=== PATIENT | male | born 1965 | race African-American/Black ===

== ENCOUNTER 2017-07-21 09:13 | Inpatient (IN) | payer OTHER ==
[2017-07-21 10:12] LABS: ADD MAN DIFF? NO
[2017-07-21 10:13] LABS: BASOPHILS % 0.2 % (0.0-2.0); EOSINOPHILS % 0.2 % (0.0-7.0); LYMPHOCYTES % 16.9 % (15.0-51.0); MEAN CORPUSCULAR HEMOGLOBIN 31.7 pg (29.0-33.0); MEAN CORPUSCULAR HGB CONC 33.3 g/dl (32.0-37.0); MEAN CORPUSCULAR VOLUME 95.1 fl (82.0-101.0); MEAN PLATELET VOLUME 11.6 fl (7.4-10.4); MONOCYTE # 0.4 10^3/ul (0.3-0.9); MONOCYTES % 6.4 % (0.0-11.0); NEUTROPHIL # 4.4 10^3/ul (1.6-7.5); NUCLEATED RED BLOOD CELLS% 0.5 /100WBC (0.0-0.0); PLATELET COUNT 164 10^3/UL (140-415); RED CELL DISTRIBUTION WIDTH 19.8 % (11.5-14.5)
[2017-07-21 10:13] LABS: WHITE BLOOD COUNT 5.8 10^3/ul (4.8-10.8)
[2017-07-21] MEDS: FUROSEMIDE 40 MG INJ IV (10:15)
[2017-07-21 10:36] LABS: ALANINE AMINOTRANSFERASE 34 IU/L (13-69); ALBUMIN 2.6 g/dl (3.3-4.9); ALBUMIN/GLOBULIN RATIO 0.59; ALKALINE PHOSPHATASE 208 IU/L (42-121); ANION GAP 10 (8-16); ASPARTATE AMINO TRANSFERASE 49 IU/L (15-46); BILIRUBIN,INDIRECT 0.6 mg/dl (0-1.1); BILIRUBIN,TOTAL 0.7 mg/dl (0.2-1.3); BLOOD UREA NITROGEN 18 mg/dl (7-20); CARBON DIOXIDE 29 mmol/L (21-31); CHLORIDE 98 mmol/L (97-110); CREATININE 0.86 mg/dl (0.61-1.24); GLUCOSE 366 mg/dl (70-220); POTASSIUM 3.7 mmol/L (3.5-5.1); SODIUM 133 mmol/L (135-144)
[2017-07-21 10:43] LABS: ETHANOL < 10.0 mg/dl
[2017-07-21 10:43] LABS: INR 1.32; PROTIME 16.6 Sec (11.9-14.9); PT RATIO 1.3
[2017-07-21 10:44] LABS: PARTIAL THROMBOPLASTIN TIME 30.7 Sec (25.0-35.0)
[2017-07-21 10:48] LABS: TROPONIN-I 0.044 ng/ml (0.00-0.12)
[2017-07-21 10:51] LABS: LACTIC ACID 3.1 mmol/L (0.5-2.0)
[2017-07-21] MEDS: metroNIDAZOLE 500 MG TAB PO (11:30)
[2017-07-21 11:40] LABS: BARBITURATES Negative (NEGATIVE); BENZODIAZEPINES Negative (NEGATIVE); CANNABINOIDS Positive (NEGATIVE); COCAINE Negative (NEGATIVE); OPIATES Negative (NEGATIVE)
[2017-07-21 11:54] LABS: AMPHETAMINE/METHAMPHETAMINE POSITIVE (NEGATIVE)
[2017-07-21] MEDS: morphine 2 MG INJ IV ×2 (12:02→15:14)
[2017-07-21] MEDS: INSULIN REGULAR, HUMAN 100 UNIT/1 ML 3ML VIAL SC (13:22)
[2017-07-21] MEDS: metroNIDAZOLE 500 MG/NS (PMX) 100 ML IVPB ×2 (13:29→22:10)
[2017-07-21] MEDS: LEVOFLOXACIN 750MG/D5W (PMX) 150 ML IVPB ×2 (14:46→18:31)
[2017-07-21] MEDS: VANCOMYCIN 1 GM (PMX) 250 ML IVPB (15:04)
[2017-07-21] MEDS ORDERED: ALBUMIN HUMAN 25% 50 ML IV (16:30)
[2017-07-21] MEDS ORDERED: VANCOMYCIN IV PER PHARMACY XX (16:30)
[2017-07-21] MEDS ORDERED: PROVENTIL HFA 6.7GM INHALER INH (17:00)
[2017-07-21] MEDS ORDERED: BARIUM SULF 2% 450 ML BTL (BERRY SMOOTHIE) PO (17:00)
[2017-07-21] MEDS ORDERED: DEXTROSE 50% 50 ML SYRINGE IV (17:30)
[2017-07-21] MEDS ORDERED: ALBUTEROL HFA 8 GM INHALER INH (17:30)
[2017-07-21] MEDS ORDERED: GLUCOSE GEL 15 GRAM TUBE PO (17:30)
[2017-07-21] MEDS ORDERED: FUROSEMIDE 40 MG INJ IV (18:00)
[2017-07-21] MEDS: INSULIN GLARGINE [LANtus] 3 ML PEN SC (18:17)
[2017-07-21] MEDS: INSULIN ASPART [NOVOLOG] 3 ML PEN SC ×3 (18:18→21:00)
[2017-07-21 20:29] LABS: LACTIC ACID 2.6 mmol/L (0.5-2.0)
[2017-07-21] MEDS: ALBUMIN HUMAN 25% 50 ML IV (20:40)
[2017-07-21] MEDS: DOCUSATE SODIUM 100 MG CAP PO (21:00)
[2017-07-21] MEDS: GABAPENTIN 300 MG CAP PO (21:19)
[2017-07-21] MEDS: RALTEGRAVIR 400 MG TAB PO (21:19)
[2017-07-21] MEDS: FAMOTIDINE 20 MG TAB PO (21:20)
[2017-07-21] MEDS: QUETIAPINE 100 MG TAB PO (21:20)
[2017-07-21] MEDS: morphine LIQ (10 MG/5 ML) CUP PO (21:21)
[2017-07-21] MEDS: VANCOMYCIN 2 GM in DEXTROSE 5% 500 ML IVPB (22:09)
[2017-07-22] MEDS: SOD CHLORIDE 0.9% 100 ML (00:15)
[2017-07-22] MEDS: IOHEXOL 300MG/ML 150 ML BTL (00:15)
[2017-07-22] MEDS: ACCU-CHEK XX (01:23)
[2017-07-22] MEDS: ALBUMIN HUMAN 25% 50 ML IV (04:21)
[2017-07-22] MEDS: metroNIDAZOLE 500 MG/NS (PMX) 100 ML IVPB (05:38)
[2017-07-22] MEDS ORDERED: VANCOMYCIN 1.75 GM in D5W 500 ML IVPB ×2 (06:00→10:00)
[2017-07-22 06:25] LABS: ADD MAN DIFF? NO
[2017-07-22 06:30] LABS: BASOPHILS % 0.3 % (0.0-2.0); EOSINOPHILS % 0.5 % (0.0-7.0); HEMATOCRIT 35.1 % (42.0-52.0); HEMOGLOBIN 11.7 g/dl (14.0-18.0); LYMPHOCYTES # 1.3 10^3/ul (0.8-2.9); LYMPHOCYTES % 33.8 % (15.0-51.0); MEAN CORPUSCULAR HEMOGLOBIN 31.5 pg (29.0-33.0); MEAN CORPUSCULAR HGB CONC 33.3 g/dl (32.0-37.0); MEAN CORPUSCULAR VOLUME 94.6 fl (82.0-101.0); MEAN PLATELET VOLUME 11.8 fl (7.4-10.4); MONOCYTE # 0.4 10^3/ul (0.3-0.9); MONOCYTES % 9.8 % (0.0-11.0); NEUTROPHIL # 2.2 10^3/ul (1.6-7.5); NEUTROPHILS % 55.3 % (39.0-77.0); NUCLEATED RED BLOOD CELLS% 0.5 /100WBC (0.0-0.0); PLATELET COUNT 141 10^3/UL (140-415); RED BLOOD COUNT 3.71 10^6/ul (4.70-6.10); RED CELL DISTRIBUTION WIDTH 20.3 % (11.5-14.5)
[2017-07-22 06:56] LABS: ALBUMIN 2.4 g/dl (3.3-4.9); ANION GAP 10 (8-16); BLOOD UREA NITROGEN 17 mg/dl (7-20); CARBON DIOXIDE 31 mmol/L (21-31); CHLORIDE 101 mmol/L (97-110); CREATININE 0.82 mg/dl (0.61-1.24); GLUCOSE 64 mg/dl (70-220); MAGNESIUM 1.4 mg/dl (1.7-2.5); PHOSPHORUS 3.2 mg/dl (2.5-4.9); POTASSIUM 3.1 mmol/L (3.5-5.1); SODIUM 139 mmol/L (135-144)
[2017-07-22 07:00] LABS: LACTIC ACID 1.8 mmol/L (0.5-2.0)
[2017-07-22 07:11] LABS: INR 1.25; PROTIME 15.9 Sec (11.9-14.9); PT RATIO 1.2
[2017-07-22] MEDS: FUROSEMIDE 20 MG INJ IV ×2 (07:45→17:38)
[2017-07-22] MEDS: DEXTROSE 50% 50 ML SYRINGE IV ×4 (08:08→12:44)
[2017-07-22] MEDS: INSULIN ASPART [NOVOLOG] 3 ML PEN SC ×5 (08:10→21:00)
[2017-07-22] MEDS: LISINOPRIL 5 MG TAB PO (09:00)
[2017-07-22] MEDS: FAMOTIDINE 20 MG TAB PO ×2 (09:00→21:02)
[2017-07-22] MEDS: DOCUSATE SODIUM 100 MG CAP PO ×2 (09:00→21:02)
[2017-07-22] MEDS: RALTEGRAVIR 400 MG TAB PO ×2 (09:00→21:02)
[2017-07-22] MEDS: GABAPENTIN 300 MG CAP PO ×3 (09:00→21:02)
[2017-07-22] MEDS: POTASSIUM CHLORIDE (SR) 10 MEQ TAB PO (09:00)
[2017-07-22] MEDS: GLUCOSE GEL 15 GRAM TUBE PO (09:05)
[2017-07-22] MEDS: GLUCOSE GEL 15 GRAM TUBE BUCCAL ×2 (10:51→17:37)
[2017-07-22 10:52] LABS: GLUCOSE 94 mg/dl (70-220)
[2017-07-22] MEDS ORDERED: VANCOMYCIN 1.5 GM in DEXTROSE 5% 500 ML IVPB (11:00)
[2017-07-22] MEDS: MAGNESIUM SULFATE 2 GM/50 ML 50 ML IVPB (11:15)
[2017-07-22] MEDS ORDERED: INSULIN ASPART [NOVOLOG] 3 ML PEN SC (12:15)
[2017-07-22] MEDS: DEXTROSE 5% 1,000 ML IV (13:55)
[2017-07-22] MEDS: GLUCAGON 1 MG INJ IM (14:51)
[2017-07-22] MEDS: NALOXONE (0.4 MG/ML) INJ IV (14:55)
[2017-07-22] MEDS: ALBUMIN HUMAN 25% 100 ML IV ×2 (17:00→17:39)
[2017-07-23] MEDS: HALOPERIDOL 5 MG INJ IM (00:30)
[2017-07-23] MEDS: LORAZEPAM 2 MG INJ IV (00:31)
[2017-07-23] MEDS: ACCU-CHEK XX (02:00)
[2017-07-23] MEDS: ALBUMIN HUMAN 25% 100 ML IV (04:46)
[2017-07-23] MEDS: FUROSEMIDE 20 MG INJ IV (05:44)
[2017-07-23 06:15] LABS: ADD MAN DIFF? NO
[2017-07-23 06:17] LABS: BASOPHILS % 0.4 % (0.0-2.0); EOSINOPHILS % 0.2 % (0.0-7.0); HEMATOCRIT 36.5 % (42.0-52.0); HEMOGLOBIN 12.2 g/dl (14.0-18.0); LYMPHOCYTES # 1.6 10^3/ul (0.8-2.9); LYMPHOCYTES % 31.8 % (15.0-51.0); MEAN CORPUSCULAR HEMOGLOBIN 31.9 pg (29.0-33.0); MEAN CORPUSCULAR HGB CONC 33.4 g/dl (32.0-37.0); MEAN CORPUSCULAR VOLUME 95.3 fl (82.0-101.0); MEAN PLATELET VOLUME 10.7 fl (7.4-10.4); MONOCYTE # 0.5 10^3/ul (0.3-0.9); MONOCYTES % 9.2 % (0.0-11.0); NEUTROPHIL # 2.8 10^3/ul (1.6-7.5); NUCLEATED RED BLOOD CELLS% 0.8 /100WBC (0.0-0.0); PLATELET COUNT 152 10^3/UL (140-415); RED BLOOD COUNT 3.83 10^6/ul (4.70-6.10); RED CELL DISTRIBUTION WIDTH 21.4 % (11.5-14.5)
[2017-07-23 06:17] LABS: WHITE BLOOD COUNT 4.9 10^3/ul (4.8-10.8)
[2017-07-23 06:46] LABS: ALANINE AMINOTRANSFERASE 37 IU/L (13-69); ALBUMIN/GLOBULIN RATIO 0.76; ALKALINE PHOSPHATASE 165 IU/L (42-121); ANION GAP 11 (8-16); ASPARTATE AMINO TRANSFERASE 38 IU/L (15-46); BILIRUBIN,INDIRECT 0.5 mg/dl (0-1.1); BILIRUBIN,TOTAL 0.5 mg/dl (0.2-1.3); BLOOD UREA NITROGEN 16 mg/dl (7-20); CALCIUM 8.4 mg/dl (8.4-10.2); CARBON DIOXIDE 31 mmol/L (21-31); CHLORIDE 100 mmol/L (97-110); CREATININE 0.84 mg/dl (0.61-1.24); GLUCOSE 212 mg/dl (70-220); POTASSIUM 3.4 mmol/L (3.5-5.1); SODIUM 139 mmol/L (135-144); TOTAL PROTEIN 6.9 g/dl (6.1-8.1)
[2017-07-23 06:59] LABS: ALBUMIN 3.1 g/dl (3.3-4.9); ANION GAP 11 (8-16); BLOOD UREA NITROGEN 17 mg/dl (7-20); CALCIUM 8.2 mg/dl (8.4-10.2); CARBON DIOXIDE 32 mmol/L (21-31); CHLORIDE 100 mmol/L (97-110); CREATININE 0.85 mg/dl (0.61-1.24); GLUCOSE 215 mg/dl (70-220); PHOSPHORUS 3.3 mg/dl (2.5-4.9); POTASSIUM 3.2 mmol/L (3.5-5.1); SODIUM 140 mmol/L (135-144)
[2017-07-23 07:19] LABS: COLLECTION PERIOD 24 hrs
[2017-07-23 07:34] LABS: COLLECTION PERIOD 24 hrs; SCRET 0.84 mg/dl (0.61-1.24); VOLUME 4550 ml/24hrs
[2017-07-23 07:35] LABS: CREATININE CLEARANCE 50.7 mls/min (84.0-162.0); CREATININE,URINE RANDOM 13.48 mg/dl (20-370); VOLUME 4550 mls
[2017-07-23] MEDS: INSULIN ASPART [NOVOLOG] 3 ML PEN SC ×7 (08:15→21:00)
[2017-07-23] MEDS ORDERED: INSULIN GLARGINE [LANtus] 3 ML PEN SC (09:00)
[2017-07-23] MEDS: FAMOTIDINE 20 MG TAB PO ×2 (09:24→20:46)
[2017-07-23] MEDS: POTASSIUM CHLORIDE (SR) 10 MEQ TAB PO (09:24)
[2017-07-23] MEDS: RALTEGRAVIR 400 MG TAB PO ×2 (09:24→20:46)
[2017-07-23] MEDS: DOCUSATE SODIUM 100 MG CAP PO ×2 (09:24→20:46)
[2017-07-23] MEDS: GABAPENTIN 300 MG CAP PO ×2 (09:25→12:52)
[2017-07-23] MEDS: LISINOPRIL 5 MG TAB PO ×2 (09:31→10:46)
[2017-07-23] MEDS: POTASSIUM CHLORIDE (SR) 20 MEQ TAB PO (10:44)
[2017-07-23] MEDS: QUETIAPINE 25 MG TAB PO (11:30)
[2017-07-23] MEDS: COLLAGENASE 30 GM TUBE TOP (12:52)
[2017-07-23] MEDS ORDERED: VANCOMYCIN IV PER PHARMACY XX (15:00)
[2017-07-23] MEDS: VANCOMYCIN 2 GM in DEXTROSE 5% 500 ML IVPB (17:03)
[2017-07-23] MEDS: FUROSEMIDE 40 MG INJ IV (17:22)
[2017-07-23] MEDS: INSULIN GLARGINE [LANtus] 3 ML PEN SC (20:53)
[2017-07-23] MEDS: QUETIAPINE 100 MG TAB PO (21:00)
[2017-07-24] MEDS: QUETIAPINE 100 MG TAB PO ×3 (01:09→19:49)
[2017-07-24] MEDS: ACCU-CHEK XX ×2 (02:00)
[2017-07-24] MEDS: VANCOMYCIN 1.5 GM in SOD CHLORIDE 0.9% 250 ML IVPB ×2 (05:12→17:03)
[2017-07-24] MEDS: FUROSEMIDE 40 MG INJ IV ×2 (05:13→17:05)
[2017-07-24] MEDS: INSULIN ASPART [NOVOLOG] 3 ML PEN SC ×7 (08:15→19:56)
[2017-07-24] MEDS: DOCUSATE SODIUM 100 MG CAP PO ×2 (08:52→19:49)
[2017-07-24] MEDS: QUETIAPINE 25 MG TAB PO (08:53)
[2017-07-24] MEDS: RALTEGRAVIR 400 MG TAB PO ×2 (08:53→19:49)
[2017-07-24] MEDS: POTASSIUM CHLORIDE (SR) 10 MEQ TAB PO (08:53)
[2017-07-24] MEDS: FAMOTIDINE 20 MG TAB PO ×2 (08:53→19:49)
[2017-07-24] MEDS: LISINOPRIL 5 MG TAB PO ×2 (08:54→08:55)
[2017-07-24] MEDS: COLLAGENASE 30 GM TUBE TOP (12:00)
[2017-07-24 13:32] LABS: ADD MAN DIFF? NO
[2017-07-24 13:35] LABS: BASOPHILS % 0.3 % (0.0-2.0); EOSINOPHILS % 0.3 % (0.0-7.0); HEMATOCRIT 39.7 % (42.0-52.0); HEMOGLOBIN 12.9 g/dl (14.0-18.0); LYMPHOCYTES # 1.5 10^3/ul (0.8-2.9); LYMPHOCYTES % 24.4 % (15.0-51.0); MEAN CORPUSCULAR HEMOGLOBIN 31.9 pg (29.0-33.0); MEAN CORPUSCULAR HGB CONC 32.5 g/dl (32.0-37.0); MEAN PLATELET VOLUME 10.1 fl (7.4-10.4); MONOCYTE # 0.4 10^3/ul (0.3-0.9); MONOCYTES % 7.3 % (0.0-11.0); NEUTROPHIL # 4.1 10^3/ul (1.6-7.5); NEUTROPHILS % 67.4 % (39.0-77.0); NUCLEATED RED BLOOD CELLS% 0.3 /100WBC (0.0-0.0); PLATELET COUNT 156 10^3/UL (140-415); RED BLOOD COUNT 4.05 10^6/ul (4.70-6.10); RED CELL DISTRIBUTION WIDTH 21.8 % (11.5-14.5)
[2017-07-24 13:55] LABS: ANION GAP 7 (8-16); BLOOD UREA NITROGEN 14 mg/dl (7-20); CALCIUM 8.2 mg/dl (8.4-10.2); CARBON DIOXIDE 39 mmol/L (21-31); CHLORIDE 98 mmol/L (97-110); CREATININE 0.84 mg/dl (0.61-1.24); GLUCOSE 143 mg/dl (70-220); MAGNESIUM 1.3 mg/dl (1.7-2.5); POTASSIUM 3.4 mmol/L (3.5-5.1); SODIUM 141 mmol/L (135-144)
[2017-07-24] MEDS: morphine LIQ (10 MG/5 ML) CUP PO (15:09)
[2017-07-24 16:05] LABS: ALBUMIN 2.6 g/dl (3.3-4.9); PHOSPHORUS 3.6 mg/dl (2.5-4.9)
[2017-07-24] MEDS: ONDANSETRON 4 MG INJ IV (18:38)
[2017-07-24] MEDS: INSULIN GLARGINE [LANtus] 3 ML PEN SC (19:55)
[2017-07-24] MEDS: HALOPERIDOL 5 MG INJ IM (22:06)
[2017-07-25] MEDS: ACCU-CHEK XX ×2 (02:00)
[2017-07-25] MEDS: FUROSEMIDE 40 MG INJ IV ×2 (05:13→16:30)
[2017-07-25] MEDS: VANCOMYCIN 1.5 GM in SOD CHLORIDE 0.9% 250 ML IVPB ×2 (05:14→16:38)
[2017-07-25] MEDS: INSULIN ASPART [NOVOLOG] 3 ML PEN SC ×7 (08:04→20:50)
[2017-07-25] MEDS: ENOXAPARIN 40 MG/0.4 ML SYG SC (09:00)
[2017-07-25] MEDS: DOCUSATE SODIUM 100 MG CAP PO ×2 (09:00→20:46)
[2017-07-25] MEDS: LISINOPRIL 5 MG TAB PO ×2 (09:00→09:33)
[2017-07-25] MEDS: RALTEGRAVIR 400 MG TAB PO ×2 (09:32→20:54)
[2017-07-25] MEDS: POTASSIUM CHLORIDE (SR) 10 MEQ TAB PO (09:33)
[2017-07-25] MEDS: FAMOTIDINE 20 MG TAB PO ×2 (09:33→20:46)
[2017-07-25] MEDS: QUETIAPINE 25 MG TAB PO (09:34)
[2017-07-25] MEDS: COLLAGENASE 30 GM TUBE TOP (09:34)
[2017-07-25 11:52] LABS: ANION GAP 7 (8-16); BLOOD UREA NITROGEN 13 mg/dl (7-20); CALCIUM 8.2 mg/dl (8.4-10.2); CARBON DIOXIDE 38 mmol/L (21-31); CHLORIDE 97 mmol/L (97-110); CREATININE 0.74 mg/dl (0.61-1.24); GLUCOSE 123 mg/dl (70-220); MAGNESIUM 1.3 mg/dl (1.7-2.5); POTASSIUM 3.8 mmol/L (3.5-5.1); SODIUM 138 mmol/L (135-144)
[2017-07-25] MEDS: morphine LIQ (10 MG/5 ML) CUP PO ×3 (14:19→23:18)
[2017-07-25 17:24] LABS: VANCOMYCIN,TROUGH 22.8 ug/ml (10.0-20.0)
[2017-07-25] MEDS: EMTRICITABINE/TENOFOV ALAFENAM 1 EACH TABLET PO (18:11)
[2017-07-25] MEDS: CASPOFUNGIN 70 MG in SOD CHLORIDE 0.9% 250 ML IVPB (18:46)
[2017-07-25] MEDS: MAGNESIUM SULFATE 4 GM/100 ML 100 ML IVPB (19:55)
[2017-07-25] MEDS: INSULIN GLARGINE [LANtus] 3 ML PEN SC (20:49)
[2017-07-25] MEDS: MAGNESIUM OXIDE 400 MG TAB PO (20:54)
[2017-07-25] MEDS: QUETIAPINE 100 MG TAB PO (20:54)
[2017-07-26] MEDS: ACCU-CHEK XX ×2 (01:40→01:45)
[2017-07-26] MEDS: QUETIAPINE 100 MG TAB PO ×2 (03:23→21:40)
[2017-07-26] MEDS: morphine LIQ (10 MG/5 ML) CUP PO ×2 (03:25→18:18)
[2017-07-26] MEDS: FUROSEMIDE 40 MG INJ IV (05:00)
[2017-07-26] MEDS: INSULIN ASPART [NOVOLOG] 3 ML PEN SC ×7 (08:19→22:49)
[2017-07-26] MEDS: EMTRICITABINE/TENOFOV ALAFENAM 1 EACH TABLET PO ×2 (09:00→10:53)
[2017-07-26] MEDS: LISINOPRIL 5 MG TAB PO ×2 (09:00)
[2017-07-26] MEDS: QUETIAPINE 25 MG TAB PO (09:32)
[2017-07-26] MEDS: MAGNESIUM OXIDE 400 MG TAB PO ×2 (09:32→21:40)
[2017-07-26] MEDS: RALTEGRAVIR 400 MG TAB PO ×2 (09:32→21:40)
[2017-07-26] MEDS: POTASSIUM CHLORIDE (SR) 10 MEQ TAB PO (09:32)
[2017-07-26] MEDS: DOCUSATE SODIUM 100 MG CAP PO ×2 (09:32→21:00)
[2017-07-26] MEDS: FAMOTIDINE 20 MG TAB PO ×2 (09:33→21:41)
[2017-07-26] MEDS: COLLAGENASE 30 GM TUBE TOP (09:43)
[2017-07-26] MEDS: ENOXAPARIN 40 MG/0.4 ML SYG SC (09:51)
[2017-07-26] MEDS: VANCOMYCIN 1 GM 250 ML IVPB ×2 (11:42→22:54)
[2017-07-26 15:35] LABS: ANION GAP 7 (8-16); BLOOD UREA NITROGEN 15 mg/dl (7-20); CALCIUM 8.2 mg/dl (8.4-10.2); CARBON DIOXIDE 37 mmol/L (21-31); CHLORIDE 96 mmol/L (97-110); GLUCOSE 151 mg/dl (70-220); MAGNESIUM 1.9 mg/dl (1.7-2.5); POTASSIUM 4.5 mmol/L (3.5-5.1); SODIUM 135 mmol/L (135-144)
[2017-07-26] MEDS: FUROSEMIDE 40 MG TAB PO (18:09)
[2017-07-26] MEDS ORDERED: CASPOFUNGIN 50 MG in SOD CHLORIDE 0.9% 250 ML IVPB (18:30)
[2017-07-26] MEDS: ONDANSETRON 4 MG INJ IV (19:52)
[2017-07-26] MEDS: INSULIN GLARGINE [LANtus] 3 ML PEN SC (22:48)
[2017-07-27] MEDS: ACCU-CHEK XX ×2 (02:00)
[2017-07-27] MEDS: FUROSEMIDE 40 MG TAB PO ×2 (05:55→17:33)
[2017-07-27] MEDS: INSULIN ASPART [NOVOLOG] 3 ML PEN SC ×7 (08:12→20:25)
[2017-07-27] MEDS: morphine LIQ (10 MG/5 ML) CUP PO ×2 (08:19→20:29)
[2017-07-27] MEDS: POTASSIUM CHLORIDE (SR) 10 MEQ TAB PO (08:21)
[2017-07-27] MEDS: RALTEGRAVIR 400 MG TAB PO ×2 (08:21→20:24)
[2017-07-27] MEDS: QUETIAPINE 25 MG TAB PO (08:21)
[2017-07-27] MEDS: MAGNESIUM OXIDE 400 MG TAB PO ×2 (08:21→20:23)
[2017-07-27] MEDS: FAMOTIDINE 20 MG TAB PO ×2 (08:21→20:23)
[2017-07-27] MEDS: LISINOPRIL 5 MG TAB PO (08:22)
[2017-07-27] MEDS: DOCUSATE SODIUM 100 MG CAP PO ×2 (08:23→20:23)
[2017-07-27] MEDS: ENOXAPARIN 40 MG/0.4 ML SYG SC (08:25)
[2017-07-27] MEDS: COLLAGENASE 30 GM TUBE TOP (09:00)
[2017-07-27] MEDS: EMTRICITABINE/TENOFOV ALAFENAM 1 EACH TABLET PO (12:16)
[2017-07-27] MEDS: VANCOMYCIN 1 GM 250 ML IVPB ×2 (12:27→23:46)
[2017-07-27 13:58] LABS: ADD MAN DIFF? NO
[2017-07-27 14:00] LABS: BASOPHILS % 0.2 % (0.0-2.0); EOSINOPHILS % 0.2 % (0.0-7.0); LYMPHOCYTES # 1.7 10^3/ul (0.8-2.9); LYMPHOCYTES % 32.6 % (15.0-51.0); MEAN CORPUSCULAR HEMOGLOBIN 31.6 pg (29.0-33.0); MEAN CORPUSCULAR HGB CONC 32.5 g/dl (32.0-37.0); MEAN CORPUSCULAR VOLUME 97.1 fl (82.0-101.0); MEAN PLATELET VOLUME 10.6 fl (7.4-10.4); MONOCYTE # 0.5 10^3/ul (0.3-0.9); MONOCYTES % 9.6 % (0.0-11.0); PLATELET COUNT 145 10^3/UL (140-415); RED BLOOD COUNT 4.12 10^6/ul (4.70-6.10); RED CELL DISTRIBUTION WIDTH 21.2 % (11.5-14.5)
[2017-07-27 14:00] LABS: WHITE BLOOD COUNT 5.3 10^3/ul (4.8-10.8)
[2017-07-27 14:37] LABS: ANION GAP 9 (8-16); BLOOD UREA NITROGEN 15 mg/dl (7-20); CALCIUM 8.3 mg/dl (8.4-10.2); CARBON DIOXIDE 37 mmol/L (21-31); CHLORIDE 95 mmol/L (97-110); CREATININE 0.78 mg/dl (0.61-1.24); GLUCOSE 191 mg/dl (70-220); POTASSIUM 5.1 mmol/L (3.5-5.1); SODIUM 136 mmol/L (135-144)
[2017-07-27] MEDS: INSULIN GLARGINE [LANtus] 3 ML PEN SC (20:21)
[2017-07-27] MEDS: QUETIAPINE 100 MG TAB PO (20:24)
[2017-07-27 23:22] LABS: VANCOMYCIN,TROUGH 16.2 ug/ml (10.0-20.0)
[2017-07-28] MEDS: ACCU-CHEK XX ×2 (02:00)
[2017-07-28] MEDS: FUROSEMIDE 40 MG TAB PO ×2 (05:32→17:23)
[2017-07-28] MEDS: morphine LIQ (10 MG/5 ML) CUP PO ×3 (05:33→23:17)
[2017-07-28 06:09] LABS: ADD MAN DIFF? NO
[2017-07-28 06:18] LABS: BASOPHILS % 0.4 % (0.0-2.0); EOSINOPHILS % 0.2 % (0.0-7.0); HEMATOCRIT 40.6 % (42.0-52.0); HEMOGLOBIN 13.3 g/dl (14.0-18.0); LYMPHOCYTES # 2.1 10^3/ul (0.8-2.9); LYMPHOCYTES % 38.9 % (15.0-51.0); MEAN CORPUSCULAR HEMOGLOBIN 31.6 pg (29.0-33.0); MEAN CORPUSCULAR HGB CONC 32.8 g/dl (32.0-37.0); MEAN CORPUSCULAR VOLUME 96.4 fl (82.0-101.0); MEAN PLATELET VOLUME 11.3 fl (7.4-10.4); MONOCYTE # 0.5 10^3/ul (0.3-0.9); MONOCYTES % 9.4 % (0.0-11.0); NEUTROPHIL # 2.7 10^3/ul (1.6-7.5); NEUTROPHILS % 50.7 % (39.0-77.0); PLATELET COUNT 143 10^3/UL (140-415); RED BLOOD COUNT 4.21 10^6/ul (4.70-6.10); RED CELL DISTRIBUTION WIDTH 21.2 % (11.5-14.5)
[2017-07-28 06:18] LABS: WHITE BLOOD COUNT 5.3 10^3/ul (4.8-10.8)
[2017-07-28 06:59] LABS: BLOOD UREA NITROGEN 16 mg/dl (7-20); CALCIUM 8.8 mg/dl (8.4-10.2); CHLORIDE 97 mmol/L (97-110); CREATININE 0.82 mg/dl (0.61-1.24); GLUCOSE 149 mg/dl (70-220); SODIUM 139 mmol/L (135-144)
[2017-07-28 07:18] LABS: ANION GAP 10 (8-16); CARBON DIOXIDE 37 mmol/L (21-31)
[2017-07-28] MEDS: INSULIN ASPART [NOVOLOG] 3 ML PEN SC ×7 (08:28→20:32)
[2017-07-28] MEDS: ENOXAPARIN 40 MG/0.4 ML SYG SC (08:29)
[2017-07-28] MEDS: RALTEGRAVIR 400 MG TAB PO ×2 (08:29→20:25)
[2017-07-28] MEDS: DOCUSATE SODIUM 100 MG CAP PO ×2 (08:30→20:26)
[2017-07-28] MEDS: POTASSIUM CHLORIDE (SR) 10 MEQ TAB PO (08:30)
[2017-07-28] MEDS: QUETIAPINE 25 MG TAB PO (08:30)
[2017-07-28] MEDS: MAGNESIUM OXIDE 400 MG TAB PO ×2 (08:30→20:26)
[2017-07-28] MEDS: LISINOPRIL 5 MG TAB PO (08:31)
[2017-07-28] MEDS: FAMOTIDINE 20 MG TAB PO ×2 (08:31→20:26)
[2017-07-28] MEDS: COLLAGENASE 30 GM TUBE TOP (08:31)
[2017-07-28] MEDS: VANCOMYCIN 1 GM 250 ML IVPB (12:08)
[2017-07-28] MEDS: EMTRICITABINE/TENOFOV ALAFENAM 1 EACH TABLET PO (12:08)
[2017-07-28] MEDS: QUETIAPINE 100 MG TAB PO (20:26)
[2017-07-28] MEDS: INSULIN GLARGINE [LANtus] 3 ML PEN SC (20:30)
[2017-07-28] MEDS: VANCOMYCIN 750 MG in DEXTROSE 5% 150 ML IVPB (23:13)
[2017-07-29] MEDS: ACCU-CHEK XX ×2 (02:00→02:06)
[2017-07-29 06:09] LABS: ADD MAN DIFF? NO
[2017-07-29 06:43] LABS: ANION GAP 7 (8-16); BLOOD UREA NITROGEN 18 mg/dl (7-20); CALCIUM 8.8 mg/dl (8.4-10.2); CARBON DIOXIDE 37 mmol/L (21-31); CHLORIDE 97 mmol/L (97-110); CREATININE 0.83 mg/dl (0.61-1.24); GLUCOSE 200 mg/dl (70-220); SODIUM 136 mmol/L (135-144)
[2017-07-29 06:44] LABS: BASOPHILS % 0.4 % (0.0-2.0); EOSINOPHILS % 0.2 % (0.0-7.0); HEMATOCRIT 38.2 % (42.0-52.0); HEMOGLOBIN 12.7 g/dl (14.0-18.0); MEAN CORPUSCULAR HEMOGLOBIN 31.8 pg (29.0-33.0); MEAN CORPUSCULAR HGB CONC 33.2 g/dl (32.0-37.0); MEAN CORPUSCULAR VOLUME 95.5 fl (82.0-101.0); MEAN PLATELET VOLUME 11.1 fl (7.4-10.4); MONOCYTE # 0.5 10^3/ul (0.3-0.9); MONOCYTES % 8.7 % (0.0-11.0); NEUTROPHIL # 2.8 10^3/ul (1.6-7.5); NEUTROPHILS % 53.5 % (39.0-77.0); PLATELET COUNT 157 10^3/UL (140-415); RED CELL DISTRIBUTION WIDTH 20.9 % (11.5-14.5)
[2017-07-29 06:44] LABS: WHITE BLOOD COUNT 5.3 10^3/ul (4.8-10.8)
[2017-07-29] MEDS: FUROSEMIDE 40 MG TAB PO ×2 (06:45→17:39)
[2017-07-29] MEDS: morphine LIQ (10 MG/5 ML) CUP PO ×3 (08:07→20:46)
[2017-07-29] MEDS: INSULIN ASPART [NOVOLOG] 3 ML PEN SC ×7 (08:15→20:55)
[2017-07-29] MEDS: RALTEGRAVIR 400 MG TAB PO ×2 (08:35→20:47)
[2017-07-29] MEDS: QUETIAPINE 25 MG TAB PO (08:35)
[2017-07-29] MEDS: MAGNESIUM OXIDE 400 MG TAB PO ×2 (08:36→20:48)
[2017-07-29] MEDS: FAMOTIDINE 20 MG TAB PO ×2 (08:36→20:48)
[2017-07-29] MEDS: DOCUSATE SODIUM 100 MG CAP PO ×2 (08:36→20:47)
[2017-07-29] MEDS: POTASSIUM CHLORIDE (SR) 10 MEQ TAB PO (08:36)
[2017-07-29] MEDS: LISINOPRIL 5 MG TAB PO (08:37)
[2017-07-29] MEDS: ENOXAPARIN 40 MG/0.4 ML SYG SC (08:37)
[2017-07-29] MEDS: COLLAGENASE 30 GM TUBE TOP (08:49)
[2017-07-29] MEDS: EMTRICITABINE/TENOFOV ALAFENAM 1 EACH TABLET PO (10:46)
[2017-07-29] MEDS: VANCOMYCIN 750 MG in DEXTROSE 5% 150 ML IVPB ×2 (10:46→23:28)
[2017-07-29] MEDS: QUETIAPINE 100 MG TAB PO (20:48)
[2017-07-29] MEDS: INSULIN GLARGINE [LANtus] 3 ML PEN SC (20:53)
[2017-07-30] MEDS: ACCU-CHEK XX (01:52)
[2017-07-30] MEDS: LORAZEPAM 2 MG INJ IV (02:35)
[2017-07-30 05:48] LABS: ADD MAN DIFF? NO
[2017-07-30 05:59] LABS: BASOPHILS % 0.3 % (0.0-2.0); EOSINOPHILS % 0.2 % (0.0-7.0); HEMATOCRIT 39.4 % (42.0-52.0); HEMOGLOBIN 13.1 g/dl (14.0-18.0); LYMPHOCYTES # 1.8 10^3/ul (0.8-2.9); LYMPHOCYTES % 29.5 % (15.0-51.0); MEAN CORPUSCULAR HEMOGLOBIN 31.9 pg (29.0-33.0); MEAN CORPUSCULAR HGB CONC 33.2 g/dl (32.0-37.0); MEAN CORPUSCULAR VOLUME 95.9 fl (82.0-101.0); MEAN PLATELET VOLUME 10.5 fl (7.4-10.4); MONOCYTE # 0.5 10^3/ul (0.3-0.9); MONOCYTES % 8.3 % (0.0-11.0); NEUTROPHIL # 3.8 10^3/ul (1.6-7.5); NEUTROPHILS % 61.5 % (39.0-77.0); PLATELET COUNT 160 10^3/UL (140-415); RED BLOOD COUNT 4.11 10^6/ul (4.70-6.10); RED CELL DISTRIBUTION WIDTH 20.5 % (11.5-14.5)
[2017-07-30 05:59] LABS: WHITE BLOOD COUNT 6.1 10^3/ul (4.8-10.8)
[2017-07-30 06:20] LABS: ANION GAP 10 (8-16); BLOOD UREA NITROGEN 18 mg/dl (7-20); CALCIUM 9.1 mg/dl (8.4-10.2); CARBON DIOXIDE 37 mmol/L (21-31); CHLORIDE 96 mmol/L (97-110); CREATININE 0.91 mg/dl (0.61-1.24); GLUCOSE 220 mg/dl (70-220); POTASSIUM 4.8 mmol/L (3.5-5.1); SODIUM 138 mmol/L (135-144)
[2017-07-30] MEDS: FUROSEMIDE 40 MG TAB PO ×2 (07:39→17:45)
[2017-07-30] MEDS: INSULIN ASPART [NOVOLOG] 3 ML PEN SC ×7 (07:58→20:13)
[2017-07-30] MEDS: DOCUSATE SODIUM 100 MG CAP PO ×2 (08:54→20:06)
[2017-07-30] MEDS: POTASSIUM CHLORIDE (SR) 10 MEQ TAB PO (08:55)
[2017-07-30] MEDS: FAMOTIDINE 20 MG TAB PO ×2 (08:56→20:06)
[2017-07-30] MEDS: RALTEGRAVIR 400 MG TAB PO ×2 (08:56→20:05)
[2017-07-30] MEDS: QUETIAPINE 25 MG TAB PO (08:56)
[2017-07-30] MEDS: LISINOPRIL 5 MG TAB PO (08:57)
[2017-07-30] MEDS: MAGNESIUM OXIDE 400 MG TAB PO ×2 (08:57→20:06)
[2017-07-30] MEDS: EMTRICITABINE/TENOFOV ALAFENAM 1 EACH TABLET PO ×2 (09:00→10:34)
[2017-07-30] MEDS: COLLAGENASE 30 GM TUBE TOP (09:00)
[2017-07-30] MEDS: ENOXAPARIN 40 MG/0.4 ML SYG SC (09:00)
[2017-07-30 10:38] LABS: VANCOMYCIN,TROUGH 14.2 ug/ml (10.0-20.0)
[2017-07-30] MEDS: VANCOMYCIN 750 MG in DEXTROSE 5% 150 ML IVPB (11:26)
[2017-07-30] MEDS: morphine LIQ (10 MG/5 ML) CUP PO (12:22)
[2017-07-30] MEDS: QUETIAPINE 100 MG TAB PO (20:05)
[2017-07-30] MEDS: INSULIN GLARGINE [LANtus] 3 ML PEN SC (20:15)
[2017-07-31] MEDS: ACCU-CHEK XX (00:38)
[2017-07-31] MEDS: QUETIAPINE 100 MG TAB PO ×2 (01:14→20:23)
[2017-07-31 06:24] LABS: ADD MAN DIFF? NO
[2017-07-31 06:27] LABS: BASOPHILS % 0.4 % (0.0-2.0); HEMATOCRIT 37.2 % (42.0-52.0); HEMOGLOBIN 12.5 g/dl (14.0-18.0); LYMPHOCYTES # 1.9 10^3/ul (0.8-2.9); LYMPHOCYTES % 37.6 % (15.0-51.0); MEAN CORPUSCULAR HEMOGLOBIN 31.6 pg (29.0-33.0); MEAN CORPUSCULAR HGB CONC 33.6 g/dl (32.0-37.0); MEAN CORPUSCULAR VOLUME 94.2 fl (82.0-101.0); MEAN PLATELET VOLUME 11.2 fl (7.4-10.4); MONOCYTE # 0.5 10^3/ul (0.3-0.9); MONOCYTES % 9.6 % (0.0-11.0); NEUTROPHIL # 2.7 10^3/ul (1.6-7.5); NEUTROPHILS % 52.2 % (39.0-77.0); PLATELET COUNT 144 10^3/UL (140-415); RED BLOOD COUNT 3.95 10^6/ul (4.70-6.10); RED CELL DISTRIBUTION WIDTH 20.2 % (11.5-14.5)
[2017-07-31 06:27] LABS: WHITE BLOOD COUNT 5.1 10^3/ul (4.8-10.8)
[2017-07-31] MEDS: FUROSEMIDE 40 MG TAB PO ×2 (06:56→17:05)
[2017-07-31 07:29] LABS: ANION GAP 11 (8-16); BLOOD UREA NITROGEN 18 mg/dl (7-20); CALCIUM 8.9 mg/dl (8.4-10.2); CARBON DIOXIDE 36 mmol/L (21-31); CHLORIDE 98 mmol/L (97-110); CREATININE 0.99 mg/dl (0.61-1.24); GLUCOSE 142 mg/dl (70-220); POTASSIUM 4.6 mmol/L (3.5-5.1); SODIUM 140 mmol/L (135-144)
[2017-07-31] MEDS: INSULIN ASPART [NOVOLOG] 3 ML PEN SC ×7 (07:57→20:30)
[2017-07-31] MEDS ORDERED: CEPASTAT LOZENGE MT (09:00)
[2017-07-31] MEDS: COLLAGENASE 30 GM TUBE TOP (09:00)
[2017-07-31] MEDS: DOCUSATE SODIUM 100 MG CAP PO ×2 (09:08→20:24)
[2017-07-31] MEDS: FAMOTIDINE 20 MG TAB PO ×2 (09:09→20:23)
[2017-07-31] MEDS: LISINOPRIL 5 MG TAB PO (09:09)
[2017-07-31] MEDS: RALTEGRAVIR 400 MG TAB PO ×2 (09:10→20:22)
[2017-07-31] MEDS: POTASSIUM CHLORIDE (SR) 10 MEQ TAB PO (09:10)
[2017-07-31] MEDS: QUETIAPINE 25 MG TAB PO (09:10)
[2017-07-31] MEDS: MAGNESIUM OXIDE 400 MG TAB PO ×2 (09:11→20:23)
[2017-07-31] MEDS: ENOXAPARIN 40 MG/0.4 ML SYG SC (09:15)
[2017-07-31] MEDS: EMTRICITABINE/TENOFOV ALAFENAM 1 EACH TABLET PO (12:45)
[2017-07-31] MEDS: GABAPENTIN 300 MG CAP PO ×2 (12:45→20:23)
[2017-07-31] MEDS: INSULIN GLARGINE [LANtus] 3 ML PEN SC (20:30)
[2017-07-31] MEDS: morphine LIQ (10 MG/5 ML) CUP PO (23:10)
[2017-08-01] MEDS: ACCU-CHEK XX (02:00)
[2017-08-01] MEDS: LORAZEPAM 2 MG INJ IV (04:23)
[2017-08-01] MEDS: FUROSEMIDE 40 MG TAB PO ×2 (06:00→18:00)
[2017-08-01] MEDS: INSULIN ASPART [NOVOLOG] 3 ML PEN SC ×7 (08:06→21:00)
[2017-08-01] MEDS: RALTEGRAVIR 400 MG TAB PO ×2 (08:09→21:27)
[2017-08-01] MEDS: QUETIAPINE 25 MG TAB PO (08:09)
[2017-08-01] MEDS: POTASSIUM CHLORIDE (SR) 10 MEQ TAB PO (08:10)
[2017-08-01] MEDS: MAGNESIUM OXIDE 400 MG TAB PO ×2 (08:10→21:00)
[2017-08-01] MEDS: GABAPENTIN 300 MG CAP PO ×3 (08:10→21:27)
[2017-08-01] MEDS: FAMOTIDINE 20 MG TAB PO ×2 (08:10→21:00)
[2017-08-01] MEDS: DOCUSATE SODIUM 100 MG CAP PO ×2 (08:10→21:00)
[2017-08-01] MEDS: LISINOPRIL 5 MG TAB PO (08:11)
[2017-08-01] MEDS: morphine LIQ (10 MG/5 ML) CUP PO ×3 (08:15→21:31)
[2017-08-01] MEDS: ENOXAPARIN 40 MG/0.4 ML SYG SC (09:00)
[2017-08-01] MEDS: EMTRICITABINE/TENOFOV ALAFENAM 1 EACH TABLET PO (13:24)
[2017-08-01] MEDS ORDERED: LORAZEPAM 2 MG INJ IV (13:30)
[2017-08-01 14:00] LABS: ADD MAN DIFF? NO
[2017-08-01 14:02] LABS: BASOPHILS % 0.3 % (0.0-2.0); EOSINOPHILS % 0.2 % (0.0-7.0); HEMATOCRIT 37.7 % (42.0-52.0); HEMOGLOBIN 12.5 g/dl (14.0-18.0); LYMPHOCYTES # 1.8 10^3/ul (0.8-2.9); LYMPHOCYTES % 29.9 % (15.0-51.0); MEAN CORPUSCULAR HGB CONC 33.2 g/dl (32.0-37.0); MEAN CORPUSCULAR VOLUME 96.4 fl (82.0-101.0); MEAN PLATELET VOLUME 10.8 fl (7.4-10.4); MONOCYTE # 0.5 10^3/ul (0.3-0.9); MONOCYTES % 8.9 % (0.0-11.0); NEUTROPHIL # 3.6 10^3/ul (1.6-7.5); NEUTROPHILS % 60.4 % (39.0-77.0); PLATELET COUNT 159 10^3/UL (140-415); RED BLOOD COUNT 3.91 10^6/ul (4.70-6.10)
[2017-08-01 14:20] LABS: ANION GAP 12 (8-16); BLOOD UREA NITROGEN 16 mg/dl (7-20); CALCIUM 8.5 mg/dl (8.4-10.2); CARBON DIOXIDE 29 mmol/L (21-31); CHLORIDE 101 mmol/L (97-110); CREATININE 0.79 mg/dl (0.61-1.24); GLUCOSE 197 mg/dl (70-220); MAGNESIUM 1.6 mg/dl (1.7-2.5); POTASSIUM 4.9 mmol/L (3.5-5.1); SODIUM 137 mmol/L (135-144)
[2017-08-01] MEDS: COLLAGENASE 30 GM TUBE TOP (14:46)
[2017-08-01] MEDS: INSULIN GLARGINE [LANtus] 3 ML PEN SC (20:00)
[2017-08-01] MEDS: QUETIAPINE 100 MG TAB PO (21:27)
[2017-08-02] MEDS: ACCU-CHEK XX (01:58)
[2017-08-02] MEDS: MAGNESIUM SULFATE 1 GM/D5W 100 ML IVPB (05:21)
[2017-08-02] MEDS: FUROSEMIDE 40 MG TAB PO ×2 (06:00→17:31)
[2017-08-02] MEDS: INSULIN ASPART [NOVOLOG] 3 ML PEN SC ×7 (07:47→20:06)
[2017-08-02] MEDS: MAGNESIUM OXIDE 400 MG TAB PO ×2 (08:07→20:03)
[2017-08-02] MEDS: FAMOTIDINE 20 MG TAB PO (08:08)
[2017-08-02] MEDS: QUETIAPINE 25 MG TAB PO (08:08)
[2017-08-02] MEDS: RALTEGRAVIR 400 MG TAB PO ×2 (08:08→20:04)
[2017-08-02] MEDS: GABAPENTIN 300 MG CAP PO ×3 (08:08→20:04)
[2017-08-02] MEDS: POTASSIUM CHLORIDE (SR) 10 MEQ TAB PO (08:08)
[2017-08-02] MEDS: LISINOPRIL 5 MG TAB PO (08:09)
[2017-08-02] MEDS: DOCUSATE SODIUM 100 MG CAP PO ×2 (08:14→20:04)
[2017-08-02] MEDS: morphine LIQ (10 MG/5 ML) CUP PO (08:47)
[2017-08-02] MEDS: ENOXAPARIN 40 MG/0.4 ML SYG SC (09:00)
[2017-08-02 10:17] LABS: ADD MAN DIFF? NO
[2017-08-02 10:21] LABS: WHITE BLOOD COUNT 5.6 10^3/ul (4.8-10.8)
[2017-08-02 10:21] LABS: BASOPHILS % 0.4 % (0.0-2.0); EOSINOPHILS % 0.4 % (0.0-7.0); HEMATOCRIT 36.2 % (42.0-52.0); HEMOGLOBIN 11.8 g/dl (14.0-18.0); LYMPHOCYTES # 1.8 10^3/ul (0.8-2.9); LYMPHOCYTES % 31.1 % (15.0-51.0); MEAN CORPUSCULAR HEMOGLOBIN 31.6 pg (29.0-33.0); MEAN CORPUSCULAR HGB CONC 32.6 g/dl (32.0-37.0); MEAN CORPUSCULAR VOLUME 97.1 fl (82.0-101.0); MONOCYTE # 0.6 10^3/ul (0.3-0.9); MONOCYTES % 9.9 % (0.0-11.0); NEUTROPHIL # 3.3 10^3/ul (1.6-7.5); NEUTROPHILS % 57.8 % (39.0-77.0); PLATELET COUNT 150 10^3/UL (140-415); RED BLOOD COUNT 3.73 10^6/ul (4.70-6.10); RED CELL DISTRIBUTION WIDTH 20.6 % (11.5-14.5)
[2017-08-02 10:41] LABS: MAGNESIUM 1.8 mg/dl (1.7-2.5)
[2017-08-02 10:43] LABS: ANION GAP 9 (8-16); BLOOD UREA NITROGEN 18 mg/dl (7-20); CALCIUM 8.1 mg/dl (8.4-10.2); CARBON DIOXIDE 31 mmol/L (21-31); CHLORIDE 101 mmol/L (97-110); CREATININE 0.76 mg/dl (0.61-1.24); GLUCOSE 277 mg/dl (70-220); POTASSIUM 4.4 mmol/L (3.5-5.1); SODIUM 137 mmol/L (135-144)
[2017-08-02] MEDS: EMTRICITABINE/TENOFOV ALAFENAM 1 EACH TABLET PO (13:31)
[2017-08-02] MEDS: traMADol 50 MG TAB PO ×2 (16:55→23:43)
[2017-08-02] MEDS: COLLAGENASE 30 GM TUBE TOP (16:58)
[2017-08-02] MEDS: QUETIAPINE 100 MG TAB PO (20:04)
[2017-08-02] MEDS: INSULIN GLARGINE [LANtus] 3 ML PEN SC (20:05)
[2017-08-03] MEDS: ACCU-CHEK XX (02:00)
[2017-08-03] MEDS: ACETAMINOPHEN 325 MG TAB PO (02:29)
[2017-08-03] MEDS: FUROSEMIDE 40 MG TAB PO ×3 (06:00→18:54)
[2017-08-03 06:04] LABS: ADD MAN DIFF? NO
[2017-08-03 06:10] LABS: BASOPHILS % 0.5 % (0.0-2.0); EOSINOPHILS % 0.2 % (0.0-7.0); HEMATOCRIT 34.3 % (42.0-52.0); HEMOGLOBIN 11.3 g/dl (14.0-18.0); LYMPHOCYTES # 1.9 10^3/ul (0.8-2.9); LYMPHOCYTES % 33.3 % (15.0-51.0); MEAN CORPUSCULAR HEMOGLOBIN 31.7 pg (29.0-33.0); MEAN CORPUSCULAR HGB CONC 32.9 g/dl (32.0-37.0); MEAN CORPUSCULAR VOLUME 96.3 fl (82.0-101.0); MEAN PLATELET VOLUME 11.2 fl (7.4-10.4); MONOCYTE # 0.7 10^3/ul (0.3-0.9); MONOCYTES % 11.5 % (0.0-11.0); NEUTROPHIL # 3.1 10^3/ul (1.6-7.5); NEUTROPHILS % 54.2 % (39.0-77.0); PLATELET COUNT 148 10^3/UL (140-415); POSITIVE DIFF @See below; RED BLOOD COUNT 3.56 10^6/ul (4.70-6.10); RED CELL DISTRIBUTION WIDTH 19.9 % (11.5-14.5)
[2017-08-03 06:10] LABS: WHITE BLOOD COUNT 5.8 10^3/ul (4.8-10.8)
[2017-08-03 06:27] LABS: ANION GAP 13 (8-16); BLOOD UREA NITROGEN 19 mg/dl (7-20); CALCIUM 7.9 mg/dl (8.4-10.2); CARBON DIOXIDE 30 mmol/L (21-31); CHLORIDE 100 mmol/L (97-110); CREATININE 0.89 mg/dl (0.61-1.24); GLUCOSE 210 mg/dl (70-220); POTASSIUM 4.5 mmol/L (3.5-5.1); SODIUM 138 mmol/L (135-144)
[2017-08-03 06:36] LABS: MAGNESIUM 1.8 mg/dl (1.7-2.5)
[2017-08-03 06:36] LABS: PHOSPHORUS 2.9 mg/dl (2.5-4.9)
[2017-08-03] MEDS: INSULIN ASPART [NOVOLOG] 3 ML PEN SC ×7 (08:17→21:01)
[2017-08-03] MEDS: DOCUSATE SODIUM 100 MG CAP PO ×2 (09:00→20:25)
[2017-08-03] MEDS: ENOXAPARIN 40 MG/0.4 ML SYG SC (09:00)
[2017-08-03] MEDS: MAGNESIUM OXIDE 400 MG TAB PO ×2 (09:55→20:25)
[2017-08-03] MEDS: POTASSIUM CHLORIDE (SR) 10 MEQ TAB PO (09:55)
[2017-08-03] MEDS: GABAPENTIN 300 MG CAP PO ×3 (09:55→20:27)
[2017-08-03] MEDS: RALTEGRAVIR 400 MG TAB PO ×2 (09:55→20:26)
[2017-08-03] MEDS: QUETIAPINE 25 MG TAB PO (09:56)
[2017-08-03] MEDS: LISINOPRIL 5 MG TAB PO (09:56)
[2017-08-03] MEDS: EMTRICITABINE/TENOFOV ALAFENAM 1 EACH TABLET PO (10:20)
[2017-08-03] MEDS: traMADol 50 MG TAB PO ×2 (11:02→20:28)
[2017-08-03] MEDS: QUETIAPINE 100 MG TAB PO ×2 (11:05→20:27)
[2017-08-03] MEDS: COLLAGENASE 30 GM TUBE TOP (11:15)
[2017-08-03] MEDS: INSULIN GLARGINE [LANtus] 3 ML PEN SC (21:00)
[2017-08-04] MEDS: ACCU-CHEK XX (02:57)
[2017-08-04] MEDS: traMADol 50 MG TAB PO (03:09)
[2017-08-04] MEDS: GUAIFENESIN 20 MG/ML 5ML CUP PO (03:55)
[2017-08-04] MEDS: FUROSEMIDE 40 MG TAB PO ×2 (05:19→17:39)
[2017-08-04] MEDS: ONDANSETRON 4 MG INJ IV (06:23)
[2017-08-04] MEDS: RALTEGRAVIR 400 MG TAB PO ×2 (08:19→21:57)
[2017-08-04] MEDS: LISINOPRIL 5 MG TAB PO (08:19)
[2017-08-04] MEDS: QUETIAPINE 25 MG TAB PO (08:19)
[2017-08-04] MEDS: DOCUSATE SODIUM 100 MG CAP PO ×2 (08:19→21:57)
[2017-08-04] MEDS: GABAPENTIN 300 MG CAP PO ×3 (08:19→21:57)
[2017-08-04] MEDS: POTASSIUM CHLORIDE (SR) 10 MEQ TAB PO (08:20)
[2017-08-04] MEDS: MAGNESIUM OXIDE 400 MG TAB PO ×2 (08:20→21:57)
[2017-08-04] MEDS: INSULIN ASPART [NOVOLOG] 3 ML PEN SC ×7 (08:21→21:00)
[2017-08-04] MEDS: ENOXAPARIN 40 MG/0.4 ML SYG SC (08:22)
[2017-08-04] MEDS: COLLAGENASE 30 GM TUBE TOP (08:27)
[2017-08-04] MEDS: EMTRICITABINE/TENOFOV ALAFENAM 1 EACH TABLET PO (11:59)
[2017-08-04] MEDS: INSULIN GLARGINE [LANtus] 3 ML PEN SC (20:00)
[2017-08-04] MEDS: QUETIAPINE 100 MG TAB PO (21:57)
[2017-08-05] MEDS: ACCU-CHEK XX (02:00)
[2017-08-05] MEDS: FUROSEMIDE 40 MG TAB PO ×3 (06:00→20:21)
[2017-08-05 07:44] LABS: Allen Test ACCEPTAB; Arterial Base Excess 1.9 mmol/L (-3.0-3); Arterial Blood Gas Oxygen Sat 80.7 mmHG (95.0-98.0); Arterial COHb 0.5 % (0.0-3.0); Arterial HCO3 26.7 mmol/L (22.0-26.0); Arterial MetHb 0.4 % (0.0-1.5); Arterial Total Hemglobin 13.1 g/dl (12.0-18.0); Arterial pCO2 42.5 mmhg (35-45); MODE NASAL CANNULA; Site Left Radial
[2017-08-05] MEDS: INSULIN ASPART [NOVOLOG] 3 ML PEN SC ×7 (07:49→20:25)
[2017-08-05] MEDS: LISINOPRIL 5 MG TAB PO (08:39)
[2017-08-05] MEDS: DOCUSATE SODIUM 100 MG CAP PO ×2 (08:53→20:25)
[2017-08-05] MEDS: GABAPENTIN 300 MG CAP PO ×3 (08:53→20:21)
[2017-08-05] MEDS: RALTEGRAVIR 400 MG TAB PO ×2 (08:53→20:20)
[2017-08-05] MEDS: MAGNESIUM OXIDE 400 MG TAB PO ×2 (08:54→20:20)
[2017-08-05] MEDS: POTASSIUM CHLORIDE (SR) 10 MEQ TAB PO (08:54)
[2017-08-05] MEDS: QUETIAPINE 25 MG TAB PO (08:54)
[2017-08-05] MEDS: ENOXAPARIN 40 MG/0.4 ML SYG SC (08:55)
[2017-08-05] MEDS: COLLAGENASE 30 GM TUBE TOP (08:56)
[2017-08-05] MEDS: EMTRICITABINE/TENOFOV ALAFENAM 1 EACH TABLET PO (13:46)
[2017-08-05] MEDS: QUETIAPINE 100 MG TAB PO ×2 (20:20→23:03)
[2017-08-05] MEDS: traMADol 50 MG TAB PO (20:22)
[2017-08-05] MEDS: INSULIN GLARGINE [LANtus] 3 ML PEN SC (20:29)
[2017-08-05] MEDS: ACETAMINOPHEN 325 MG TAB PO (23:03)
[2017-08-05] MEDS: SOD CHLORIDE 0.9% 500 ML IV (23:07)
[2017-08-06] MEDS: ACCU-CHEK XX (01:56)
[2017-08-06 06:13] LABS: ADD MAN DIFF? NO
[2017-08-06 06:36] LABS: WHITE BLOOD COUNT 5.9 10^3/ul (4.8-10.8)
[2017-08-06 06:36] LABS: BASOPHILS % 0.7 % (0.0-2.0); EOSINOPHILS % 0.5 % (0.0-7.0); HEMATOCRIT 35.2 % (42.0-52.0); HEMOGLOBIN 11.8 g/dl (14.0-18.0); LYMPHOCYTES # 1.7 10^3/ul (0.8-2.9); MEAN CORPUSCULAR HEMOGLOBIN 32.2 pg (29.0-33.0); MEAN CORPUSCULAR HGB CONC 33.5 g/dl (32.0-37.0); MEAN CORPUSCULAR VOLUME 95.9 fl (82.0-101.0); MEAN PLATELET VOLUME 10.9 fl (7.4-10.4); MONOCYTE # 0.7 10^3/ul (0.3-0.9); MONOCYTES % 11.1 % (0.0-11.0); NEUTROPHIL # 3.4 10^3/ul (1.6-7.5); NEUTROPHILS % 58.4 % (39.0-77.0); PLATELET COUNT 208 10^3/UL (140-415); RED BLOOD COUNT 3.67 10^6/ul (4.70-6.10); RED CELL DISTRIBUTION WIDTH 19.4 % (11.5-14.5)
[2017-08-06] MEDS: FUROSEMIDE 40 MG TAB PO (06:42)
[2017-08-06 07:26] LABS: ANION GAP 11 (8-16); BLOOD UREA NITROGEN 55 mg/dl (7-20); CALCIUM 8.8 mg/dl (8.4-10.2); CARBON DIOXIDE 31 mmol/L (21-31); CHLORIDE 95 mmol/L (97-110); CREATININE 1.88 mg/dl (0.61-1.24); GLUCOSE 200 mg/dl (70-220); POTASSIUM 5.6 mmol/L (3.5-5.1); SODIUM 131 mmol/L (135-144)
[2017-08-06] MEDS: INSULIN ASPART [NOVOLOG] 3 ML PEN SC ×7 (08:00→20:24)
[2017-08-06] MEDS: RALTEGRAVIR 400 MG TAB PO ×2 (08:34→20:17)
[2017-08-06] MEDS: GABAPENTIN 300 MG CAP PO ×3 (08:34→20:16)
[2017-08-06] MEDS: MAGNESIUM OXIDE 400 MG TAB PO ×2 (08:34→20:17)
[2017-08-06] MEDS: QUETIAPINE 25 MG TAB PO (08:34)
[2017-08-06] MEDS: DOCUSATE SODIUM 100 MG CAP PO ×2 (08:34→20:16)
[2017-08-06] MEDS: POTASSIUM CHLORIDE (SR) 10 MEQ TAB PO (08:35)
[2017-08-06] MEDS: COLLAGENASE 30 GM TUBE TOP (08:36)
[2017-08-06] MEDS: ENOXAPARIN 40 MG/0.4 ML SYG SC (08:37)
[2017-08-06] MEDS: LISINOPRIL 5 MG TAB PO (08:38)
[2017-08-06] MEDS: EMTRICITABINE/TENOFOV ALAFENAM 1 EACH TABLET PO (11:00)
[2017-08-06] MEDS: CEFEPIME 1GM/50 ML (PMX) 50 ML IVPB ×2 (14:46→20:18)
[2017-08-06] MEDS: DOXYCYCLINE 100 MG TAB PO ×2 (14:46→20:17)
[2017-08-06] MEDS: NA POLYST SULFON 15 GM/60 ML BTL PO ×2 (15:30→16:56)
[2017-08-06] MEDS: traMADol 50 MG TAB PO (20:16)
[2017-08-06] MEDS: QUETIAPINE 100 MG TAB PO (20:17)
[2017-08-06] MEDS: INSULIN GLARGINE [LANtus] 3 ML PEN SC (20:38)
[2017-08-06] MEDS: HEPARIN 5,000 UNIT/0.5 ML VIAL SC (20:38)
[2017-08-06] MEDS ORDERED: ALBUTEROL/IPRATROPIUM (NEB) 3 ML AMP HHN (21:30)
[2017-08-06] MEDS: ALBUMIN HUMAN 25% 100 ML IV (22:01)
[2017-08-07] MEDS: QUETIAPINE 100 MG TAB PO ×2 (01:23→20:16)
[2017-08-07] MEDS: ACETAMINOPHEN 325 MG TAB PO (01:23)
[2017-08-07] MEDS: ACCU-CHEK XX (01:32)
[2017-08-07] MEDS: ALBUMIN HUMAN 25% 100 ML IV ×2 (06:06→12:56)
[2017-08-07] MEDS: INSULIN ASPART [NOVOLOG] 3 ML PEN SC ×7 (08:15→20:19)
[2017-08-07] MEDS: DOCUSATE SODIUM 100 MG CAP PO ×2 (08:28→20:16)
[2017-08-07] MEDS: RALTEGRAVIR 400 MG TAB PO ×2 (08:29→20:17)
[2017-08-07] MEDS: MAGNESIUM OXIDE 400 MG TAB PO ×2 (08:30→20:16)
[2017-08-07] MEDS: COLLAGENASE 30 GM TUBE TOP (08:30)
[2017-08-07] MEDS: QUETIAPINE 25 MG TAB PO (08:30)
[2017-08-07] MEDS: GABAPENTIN 300 MG CAP PO ×3 (08:30→20:16)
[2017-08-07] MEDS: DOXYCYCLINE 100 MG TAB PO ×2 (08:36→20:16)
[2017-08-07] MEDS: FUROSEMIDE 40 MG TAB PO (08:37)
[2017-08-07] MEDS: HEPARIN 5,000 UNIT/0.5 ML VIAL SC ×2 (08:40→20:20)
[2017-08-07] MEDS: EMTRICITABINE/TENOFOV ALAFENAM 1 EACH TABLET PO (09:59)
[2017-08-07] MEDS: CEFEPIME 1GM/50 ML (PMX) 50 ML IVPB ×2 (10:00→20:17)
[2017-08-07 15:25] LABS: ADD MAN DIFF? NO
[2017-08-07 15:29] LABS: BASOPHILS % 0.7 % (0.0-2.0); EOSINOPHILS % 0.7 % (0.0-7.0); HEMATOCRIT 33.5 % (42.0-52.0); HEMOGLOBIN 10.9 g/dl (14.0-18.0); LYMPHOCYTES # 1.2 10^3/ul (0.8-2.9); LYMPHOCYTES % 26.3 % (15.0-51.0); MEAN CORPUSCULAR HEMOGLOBIN 31.4 pg (29.0-33.0); MEAN CORPUSCULAR HGB CONC 32.5 g/dl (32.0-37.0); MEAN CORPUSCULAR VOLUME 96.5 fl (82.0-101.0); MEAN PLATELET VOLUME 11.1 fl (7.4-10.4); MONOCYTE # 0.5 10^3/ul (0.3-0.9); MONOCYTES % 10.6 % (0.0-11.0); NEUTROPHIL # 2.7 10^3/ul (1.6-7.5); NEUTROPHILS % 61.5 % (39.0-77.0); PLATELET COUNT 207 10^3/UL (140-415); RED BLOOD COUNT 3.47 10^6/ul (4.70-6.10); RED CELL DISTRIBUTION WIDTH 20.1 % (11.5-14.5)
[2017-08-07 15:29] LABS: WHITE BLOOD COUNT 4.5 10^3/ul (4.8-10.8)
[2017-08-07 15:46] LABS: ANION GAP 16 (8-16); BLOOD UREA NITROGEN 31 mg/dl (7-20); CALCIUM 8.9 mg/dl (8.4-10.2); CARBON DIOXIDE 31 mmol/L (21-31); CHLORIDE 100 mmol/L (97-110); CREATININE 0.84 mg/dl (0.61-1.24); GLUCOSE 135 mg/dl (70-220); POTASSIUM 4.2 mmol/L (3.5-5.1); SODIUM 143 mmol/L (135-144)
[2017-08-07] MEDS: traMADol 50 MG TAB PO (20:15)
[2017-08-07] MEDS: INSULIN GLARGINE [LANtus] 3 ML PEN SC (20:20)
[2017-08-08] MEDS: ACCU-CHEK XX (01:19)
[2017-08-08] MEDS: traMADol 50 MG TAB PO ×2 (03:15→07:57)
[2017-08-08] MEDS: DOXYCYCLINE 100 MG TAB PO ×2 (07:55→20:56)
[2017-08-08] MEDS: FUROSEMIDE 40 MG TAB PO (07:56)
[2017-08-08] MEDS: MAGNESIUM OXIDE 400 MG TAB PO ×2 (07:56→20:55)
[2017-08-08] MEDS: DOCUSATE SODIUM 100 MG CAP PO ×2 (07:57→20:56)
[2017-08-08] MEDS: RALTEGRAVIR 400 MG TAB PO ×2 (07:57→20:56)
[2017-08-08] MEDS: QUETIAPINE 25 MG TAB PO (07:57)
[2017-08-08] MEDS: GABAPENTIN 300 MG CAP PO ×3 (07:57→20:56)
[2017-08-08] MEDS: CEFEPIME 1GM/50 ML (PMX) 50 ML IVPB ×2 (07:57→20:58)
[2017-08-08] MEDS: INSULIN ASPART [NOVOLOG] 3 ML PEN SC ×7 (07:59→21:11)
[2017-08-08] MEDS: EMTRICITABINE/TENOFOV ALAFENAM 1 EACH TABLET PO (08:01)
[2017-08-08] MEDS: COLLAGENASE 30 GM TUBE TOP (08:01)
[2017-08-08] MEDS: HEPARIN 5,000 UNIT/0.5 ML VIAL SC ×2 (08:01→20:58)
[2017-08-08 12:12] LABS: ADD MAN DIFF? NO
[2017-08-08 12:14] LABS: BASOPHILS % 0.2 % (0.0-2.0); EOSINOPHILS % 0.2 % (0.0-7.0); HEMATOCRIT 34.7 % (42.0-52.0); HEMOGLOBIN 11.4 g/dl (14.0-18.0); LYMPHOCYTES # 1.3 10^3/ul (0.8-2.9); LYMPHOCYTES % 27.2 % (15.0-51.0); MEAN CORPUSCULAR HEMOGLOBIN 31.8 pg (29.0-33.0); MEAN CORPUSCULAR HGB CONC 32.9 g/dl (32.0-37.0); MEAN CORPUSCULAR VOLUME 96.9 fl (82.0-101.0); MEAN PLATELET VOLUME 10.4 fl (7.4-10.4); MONOCYTE # 0.6 10^3/ul (0.3-0.9); MONOCYTES % 11.6 % (0.0-11.0); NEUTROPHILS % 60.6 % (39.0-77.0); PLATELET COUNT 235 10^3/UL (140-415); RED BLOOD COUNT 3.58 10^6/ul (4.70-6.10); RED CELL DISTRIBUTION WIDTH 20.1 % (11.5-14.5)
[2017-08-08 12:14] LABS: WHITE BLOOD COUNT 4.9 10^3/ul (4.8-10.8)
[2017-08-08 12:23] LABS: HEMOGLOBIN A1C 9.2 % (0-5.9)
[2017-08-08 12:32] LABS: ANION GAP 16 (8-16); BLOOD UREA NITROGEN 18 mg/dl (7-20); CALCIUM 9.1 mg/dl (8.4-10.2); CARBON DIOXIDE 31 mmol/L (21-31); CHLORIDE 101 mmol/L (97-110); CREATININE 0.71 mg/dl (0.61-1.24); GLUCOSE 139 mg/dl (70-220); POTASSIUM 4.5 mmol/L (3.5-5.1); SODIUM 143 mmol/L (135-144)
[2017-08-08] MEDS: NITROGLYCERIN (SL) 0.4 MG TAB SL (20:56)
[2017-08-08] MEDS: QUETIAPINE 100 MG TAB PO (20:56)
[2017-08-08] MEDS: KETOROLAC 15 MG INJ IV (20:58)
[2017-08-08] MEDS: INSULIN GLARGINE [LANtus] 3 ML PEN SC (21:04)
[2017-08-09] MEDS: ACCU-CHEK XX (02:00)
[2017-08-09] MEDS: traMADol 50 MG TAB PO ×3 (05:06→21:11)
[2017-08-09] MEDS: QUETIAPINE 25 MG TAB PO (08:02)
[2017-08-09] MEDS: EMTRICITABINE/TENOFOV ALAFENAM 1 EACH TABLET PO (08:02)
[2017-08-09] MEDS: DOCUSATE SODIUM 100 MG CAP PO ×2 (08:02→21:10)
[2017-08-09] MEDS: DOXYCYCLINE 100 MG TAB PO ×2 (08:03→21:10)
[2017-08-09] MEDS: MAGNESIUM OXIDE 400 MG TAB PO ×2 (08:03→21:11)
[2017-08-09] MEDS: GABAPENTIN 300 MG CAP PO ×3 (08:03→21:11)
[2017-08-09] MEDS: HEPARIN 5,000 UNIT/0.5 ML VIAL SC ×2 (08:03→21:00)
[2017-08-09] MEDS: RALTEGRAVIR 400 MG TAB PO ×2 (08:03→21:10)
[2017-08-09] MEDS: FUROSEMIDE 40 MG TAB PO (08:04)
[2017-08-09] MEDS: COLLAGENASE 30 GM TUBE TOP (08:04)
[2017-08-09] MEDS: INSULIN ASPART [NOVOLOG] 3 ML PEN SC ×7 (08:07→21:15)
[2017-08-09] MEDS: CEFEPIME 1GM/50 ML (PMX) 50 ML IVPB ×2 (08:08→21:10)
[2017-08-09 14:13] LABS: INR 1.14; PROTIME 14.8 Sec (11.9-14.9); PT RATIO 1.2
[2017-08-09] MEDS ORDERED: VITAMIN A & D 5 GM OINT PACKET TOP (16:57)
[2017-08-09] MEDS: QUETIAPINE 100 MG TAB PO (21:11)
[2017-08-09] MEDS: INSULIN GLARGINE [LANtus] 3 ML PEN SC (21:14)
[2017-08-10] MEDS: ACCU-CHEK XX (02:21)
[2017-08-10] MEDS: traMADol 50 MG TAB PO ×3 (03:04→19:28)
[2017-08-10 06:12] LABS: ADD MAN DIFF? NO
[2017-08-10 06:22] LABS: BASOPHILS % 0.5 % (0.0-2.0); EOSINOPHILS % 0.7 % (0.0-7.0); HEMATOCRIT 36.6 % (42.0-52.0); HEMOGLOBIN 11.8 g/dl (14.0-18.0); LYMPHOCYTES # 1.7 10^3/ul (0.8-2.9); LYMPHOCYTES % 31.3 % (15.0-51.0); MEAN CORPUSCULAR HEMOGLOBIN 31.4 pg (29.0-33.0); MEAN CORPUSCULAR HGB CONC 32.2 g/dl (32.0-37.0); MEAN CORPUSCULAR VOLUME 97.3 fl (82.0-101.0); MEAN PLATELET VOLUME 10.5 fl (7.4-10.4); MONOCYTE # 0.5 10^3/ul (0.3-0.9); MONOCYTES % 8.6 % (0.0-11.0); NEUTROPHIL # 3.2 10^3/ul (1.6-7.5); NEUTROPHILS % 58.4 % (39.0-77.0); PLATELET COUNT 255 10^3/UL (140-415); RED BLOOD COUNT 3.76 10^6/ul (4.70-6.10); RED CELL DISTRIBUTION WIDTH 20.4 % (11.5-14.5)
[2017-08-10 06:22] LABS: WHITE BLOOD COUNT 5.6 10^3/ul (4.8-10.8)
[2017-08-10 06:44] LABS: ANION GAP 14 (8-16); BLOOD UREA NITROGEN 23 mg/dl (7-20); CALCIUM 8.9 mg/dl (8.4-10.2); CARBON DIOXIDE 32 mmol/L (21-31); CHLORIDE 99 mmol/L (97-110); CREATININE 0.71 mg/dl (0.61-1.24); GLUCOSE 197 mg/dl (70-220); POTASSIUM 4.6 mmol/L (3.5-5.1); SODIUM 140 mmol/L (135-144)
[2017-08-10] MEDS: INSULIN ASPART [NOVOLOG] 3 ML PEN SC ×7 (07:57→20:42)
[2017-08-10] MEDS: CEFEPIME 1GM/50 ML (PMX) 50 ML IVPB ×2 (08:20→20:34)
[2017-08-10] MEDS: DOXYCYCLINE 100 MG TAB PO ×2 (08:21→20:32)
[2017-08-10] MEDS: RALTEGRAVIR 400 MG TAB PO ×2 (08:21→20:33)
[2017-08-10] MEDS: FUROSEMIDE 40 MG TAB PO (08:21)
[2017-08-10] MEDS: GABAPENTIN 300 MG CAP PO ×3 (08:22→20:33)
[2017-08-10] MEDS: DOCUSATE SODIUM 100 MG CAP PO ×2 (08:22→20:33)
[2017-08-10] MEDS: MAGNESIUM OXIDE 400 MG TAB PO ×2 (08:22→20:33)
[2017-08-10] MEDS: QUETIAPINE 25 MG TAB PO (08:22)
[2017-08-10] MEDS: HEPARIN 5,000 UNIT/0.5 ML VIAL SC ×2 (08:35→20:35)
[2017-08-10] MEDS: COLLAGENASE 30 GM TUBE TOP (09:00)
[2017-08-10] MEDS: EMTRICITABINE/TENOFOV ALAFENAM 1 EACH TABLET PO (10:23)
[2017-08-10] MEDS: LIDOCAINE 1% (MPF) 5 ML VIAL (11:06)
[2017-08-10 13:35] LABS: FLD RBC 1000 /uL; FLD WBC 69 /cmm
[2017-08-10 13:38] LABS: FLD CLARITY CLEAR; FLD COLOR YELLOW
[2017-08-10 13:39] LABS: FLD TYPE PLEURAL
[2017-08-10 13:59] LABS: FLUID LD 554 U/L; FLUID TOTAL PROTEIN 4.2 g/dl; FLUID TYPE PLEURAL FLUID
[2017-08-10 14:01] LABS: FLD MN% 85.5 %; FLD PMN% 14.5 %
[2017-08-10] MEDS: QUETIAPINE 100 MG TAB PO (20:33)
[2017-08-10] MEDS: INSULIN GLARGINE [LANtus] 3 ML PEN SC (20:41)
[2017-08-11] MEDS: ACCU-CHEK XX (02:00)
[2017-08-11] MEDS: INSULIN ASPART [NOVOLOG] 3 ML PEN SC ×8 (07:57→20:26)
[2017-08-11] MEDS: GUAIFENESIN 20 MG/ML 5ML CUP PO (08:07)
[2017-08-11] MEDS: DOCUSATE SODIUM 100 MG CAP PO ×2 (08:07→20:20)
[2017-08-11] MEDS: MAGNESIUM OXIDE 400 MG TAB PO ×2 (08:08→20:20)
[2017-08-11] MEDS: GABAPENTIN 300 MG CAP PO ×3 (08:08→20:20)
[2017-08-11] MEDS: RALTEGRAVIR 400 MG TAB PO ×2 (08:08→20:20)
[2017-08-11] MEDS: DOXYCYCLINE 100 MG TAB PO ×2 (08:09→20:20)
[2017-08-11] MEDS: FUROSEMIDE 40 MG TAB PO (08:09)
[2017-08-11] MEDS: QUETIAPINE 25 MG TAB PO (08:09)
[2017-08-11] MEDS: CEFEPIME 1GM/50 ML (PMX) 50 ML IVPB ×2 (08:10→20:21)
[2017-08-11] MEDS: traMADol 50 MG TAB PO (08:28)
[2017-08-11] MEDS: EMTRICITABINE/TENOFOV ALAFENAM 1 EACH TABLET PO (08:30)
[2017-08-11] MEDS: COLLAGENASE 30 GM TUBE TOP (08:30)
[2017-08-11] MEDS: HEPARIN 5,000 UNIT/0.5 ML VIAL SC ×2 (09:00→20:21)
[2017-08-11] MEDS: QUETIAPINE 100 MG TAB PO (20:20)
[2017-08-11] MEDS: INSULIN GLARGINE [LANtus] 3 ML PEN SC (20:29)
[2017-08-12] MEDS: ACCU-CHEK XX (02:00)
[2017-08-12] MEDS: traMADol 50 MG TAB PO (04:51)
[2017-08-12] MEDS: INSULIN ASPART [NOVOLOG] 3 ML PEN SC ×4 (07:51→12:23)
[2017-08-12] MEDS: HEPARIN 5,000 UNIT/0.5 ML VIAL SC (09:00)
[2017-08-12] MEDS: CEFEPIME 1GM/50 ML (PMX) 50 ML IVPB (09:24)
[2017-08-12] MEDS: FUROSEMIDE 40 MG TAB PO (09:24)
[2017-08-12] MEDS: MAGNESIUM OXIDE 400 MG TAB PO (09:24)
[2017-08-12] MEDS: RALTEGRAVIR 400 MG TAB PO (09:25)
[2017-08-12] MEDS: COLLAGENASE 30 GM TUBE TOP (09:25)
[2017-08-12] MEDS: GABAPENTIN 300 MG CAP PO ×2 (09:25→13:05)
[2017-08-12] MEDS: DOCUSATE SODIUM 100 MG CAP PO (09:25)
[2017-08-12] MEDS: QUETIAPINE 25 MG TAB PO (09:25)
[2017-08-12] MEDS: DOXYCYCLINE 100 MG TAB PO (09:25)
[2017-08-12] MEDS: EMTRICITABINE/TENOFOV ALAFENAM 1 EACH TABLET PO (12:20)
== END 2017-08-12 15:15 | disposition home or self-care (01) | DRG 974 ==
LOC: E/R 09:13 → MS2 12:22
PROC: 0W993ZZ Drainage of Right Pleural Cavity, Percutaneous Approach (ICD-10-PCS; principal; 2017-08-10)
DX: B20 Human immunodeficiency virus [HIV] disease (principal); J96.01 Acute respiratory failure with hypoxia; A41.9 Sepsis, unspecified organism; I50.23 Acute on chronic systolic (congestive) heart failure; L89.213 Pressure ulcer of right hip, stage 3; N17.9 Acute kidney failure, unspecified; J90 Pleural effusion, not elsewhere classified; L89.223 Pressure ulcer of left hip, stage 3; J18.9 Pneumonia, unspecified organism; E87.2 Acidosis; E87.1 Hypo-osmolality and hyponatremia; I42.0 Dilated cardiomyopathy; D69.6 Thrombocytopenia, unspecified; I11.0 Hypertensive heart disease with heart failure; E11.65 Type 2 diabetes mellitus with hyperglycemia; N49.2 Inflammatory disorders of scrotum; F15.10 Other stimulant abuse, uncomplicated; D64.9 Anemia, unspecified; F12.10 Cannabis abuse, uncomplicated; Z91.19 Patient's noncompliance with other medical treatment and regimen; F99 Mental disorder, not otherwise specified; F17.210 Nicotine dependence, cigarettes, uncomplicated; E86.1 Hypovolemia; R60.1 Generalized edema; F25.0 Schizoaffective disorder, bipolar type; E66.01 Morbid (severe) obesity due to excess calories; Z68.30 Body mass index [BMI] 30.0-30.9, adult; E83.42 Hypomagnesemia; I27.20 Pulmonary hypertension, unspecified; E87.5 Hyperkalemia
CPT/HCPCS: 36415; 36600; 70450; 71045; 71250; 72193; 76775; 76942; 80048; 80053; 80069; 80202; 80306; 80307; 82040; 82575; 82803; 82947; 82962; 83036; 83605; 83615; 83735; 84100; 84156; 84157; 84443; 84484; 85025; 85610; 85730; 87040; 87070; 87075; 87086; 87102; 87116; 89051; 93005; 93306; 96372; 96374; 96375; 97110; 97116; 97163; 97530; 99291-25; J1940

== ENCOUNTER 2017-12-17 11:10 | Emergency (ER) | payer OTHER | END 2017-12-17 12:30 | disposition home or self-care (01) | LOC: E/R 12:30 | DX: I46.9 Cardiac arrest, cause unspecified (principal); I10 Essential (primary) hypertension; I25.10 Atherosclerotic heart disease of native coronary artery without angina pectoris; E11.9 Type 2 diabetes mellitus without complications; Z79.4 Long term (current) use of insulin; Z87.891 Personal history of nicotine dependence | CPT/HCPCS: 99282 ==